=== PATIENT | female | born 1985 | race African-American/Black ===

== ENCOUNTER 2018-03-11 08:40 | Emergency (ER) | payer SELFPAY ==
[~2018-03-11] VITALS: Ht 167.6 cm; Wt 81.6 kg
[~2018-03-11 08:40] MED LIST: PREN-84 OR
[2018-03-11 08:49] VITALS: BP 110/76
[2018-03-11] MEDS ORDERED: KETOROLAC TROMETH 60MG/2ML VIAL IM ONE (09:45)
== END 2018-03-11 10:29 | disposition home or self-care (01) ==
LOC: ER 08:42
DX: M54.5 Low back pain (principal); V43.52XA Car driver injured in collision with other type car in traffic accident, initial encounter; Y93.89 Activity, other specified; Y99.8 Other external cause status; Y92.410 Unspecified street and highway as the place of occurrence of the external cause
CPT/HCPCS: 72100; 96372; 99283; J1885